=== PATIENT | female | born 1995 | race American Indian/Alaskan Native ===

== ENCOUNTER 2019-10-22 20:19 | Emergency (ER) | payer SELFPAY ==
--- NOTE | 2019-10-22 20:27 | Emergency Department Report ---
Blank Doc - Documentation Documentation: 24-year-old female that presents with right ankle pain s/p fall. This initial assessment/diagnostic orders/clinical plan/treatment(s) is/are subject to change based on patient's health status, clinical progression and re- assessment by fellow clinical providers in the ED. Further treatment and workup at subsequent clinical providers discretion. Patient/guardians urged not to elope from the ED as their condition may be serious if not clinically assessed and managed. Initial orders include: 1- Patient sent to [facility] for further evaluation and treatment 2- xrays
--- NOTE | 2019-10-22 21:07 | XRay Report ---
Right ankle-3 views INDICATION: ankle pain. COMPARISON: None. IMPRESSION: Moderate soft tissue swelling about the ankle, especially laterally. No acute fracture i dentified. Ankle mortise is symmetric and preserved. Signer Name: Timothy Sarabia MD Signed: 10/22/2019 9:02 PM Workstation Name: [id number]
[2019-10-23] MEDS ORDERED: HYDROcodone/ACETAMINOPHEN 5-325 MG TAB PO ONE (00:18)
[2019-10-23] MEDS ORDERED: IBUPROFEN 600 MG TAB PO ONE (00:18)
[2019-10-23] MEDS ORDERED: ONDANSETRON 4 MG ODT TAB PO ONE (00:19)
--- NOTE | 2019-10-23 01:07 | Emergency Department Report ---
ED Lower Extremity HPI - General Chief Complaint: Extremity Injury, Lower Stated Complaint: POSS RT FOOT BROKEN Time Seen by Provider: 10/22/19 20:26 Source: patient Mode of arrival: Ambulatory Limitations: No Limitations - History of Present Illness Initial Comments: Patient is a 24-year-old -Spanish female with no past medical history who presents to the ED with complaint of acute onset persistent severe right ankle pain and swelling after she tripped down the stairs and twisted her right ankle and fell down 24 hours ago. Patient admits that she was intoxicated on alcohol when this happened. Patient denies head and neck injuries, back pain, loss of consciousness, numbness and tingling or weakness of the right leg, dizziness, change in vision, seizures or syncope. Patient states that the pain is worse with ambulation. MD Complaint: ankle injury (right ankle pain and swelling) -: Sudden, hour(s) (24) Injury: Ankle: Right (swelling and pain) Type of Injury: inversion, eversion Place: home Severity: severe Severity scale (0 -10): 8 Improves With: nothing Worsens With: weight bearing, movement, palpation Context: fall, other (tripped down the stairs and twisted right ankle) Associated Symptoms: swelling (right ankle), able to partially bear weight. de nies: numbness, tingling - Related Data Previous Rx's Medication Instructions Recorded Last Taken Type Cyclobenzaprine [Flexeril] 10 mg PO Q8H PRN #15 tablet 10/23/19 Unknown Rx Ibuprofen [Motrin] 800 mg PO Q8HR PRN #24 tablet 10/23/19 Unknown Rx Allergies Allergy/AdvReac Type Severity Reaction Status Date / Time Cinnamon Allergy Hives Uncoded 10/22/19 20:25 ED Review of Systems ROS: Stated complaint: POSS RT FOOT BROKEN Other details as noted in HPI Constitutional: denies: chills, fever Eyes: denies: eye pain, eye discharge, vision change ENT: denies: ear pain, throat pain Respiratory: denies: cough, shortness of breath, wheezing Cardiovascular: denies: chest pain, palpitations Endocrine: no symptoms reported Gastrointestinal: denies: abdominal pain, nausea, diarrhea Genitourinary: denies: urgency, dysuria, discharge Musculoskeletal: joint swelling (right ankle), arthralgia (right ankle). denies: back pain Skin: denies: rash, lesions Neurological: denies: headache, weakness, paresthesias Psychiatric: denies: anxiety, depression Hematological/Lymphatic: denies: easy bleeding, easy bruising ED Past Medical Hx - Past Medical History Previous Medical History?: No - Surgical History Past Surgical History?: Yes Additional Surgical History: Tonsillectomy - Social History Smoking Status: Never Smoker Substance Use Type: None - Medications Home Medications: Home Medications Medication Instructions Recorded Confirmed Last Taken Type Cyclobenzaprine [Flexeril] 10 mg PO Q8H PRN #15 tablet 10/23/19 Unknown Rx Ibuprofen [Motrin] 800 mg PO Q8HR PRN #24 tablet 10/23/19 Unknown Rx ED Physical Exam - General Limitations: No Limitations General appearance: alert, in no apparent distress - Head Head exam: Present: atraumatic, normocephalic, normal inspection - Eye Eye exam: Present: normal appearance, PERRL, EOMI Pupils: Present: normal accommodation - ENT ENT exam: Present: normal exam, normal orophraynx, mucous membranes moist, TM's normal bilaterally, normal external ear exam - Neck Neck exam: Present: normal inspection, full ROM - Respiratory Respiratory exam: Present: normal lung sounds bilaterally. Absent: respiratory distress, wheezes, rales, rhonchi, chest wall tenderness, accessory muscle use, decreased breath sounds, prolonged expiratory - Cardiovascular Cardiovascular Exam: Present: normal rhythm, tachycardia, normal heart sounds. Absent: systolic murmur, diastolic murmur, rubs, gallop - GI/Abdominal GI/Abdominal exam: Present: soft, normal bowel sounds. Absent: tenderness, guarding, hyperactive bowel sounds, hypoactive bowel sounds, organomegaly - Extremities Exam Extremities exam: Present: normal inspection, full ROM, tenderness (right ankle tenderness), normal capillary refill, joint swelling (right ankle swelling and tenderness) - Back Exam Back exam: Present: normal inspection, full ROM. Absent: tenderness, muscle spasm, paraspinal tenderness - Neurological Exam Neurological exam: Present: alert, oriented X3, CN II-XII intact, normal gait, reflexes normal - Psychiatric Psychiatric exam: Present: normal affect, normal mood - Skin Skin exam: Present: warm, dry, intact, normal color. Absent: rash ED Course Vital Signs 10/22/19 10/22/19 10/23/19 20:22 20:31 00:41 Temperature 99.0 F 99 F Pulse Rate 102 H 103 H Respiratory 18 18 20 Rate Blood Pressure 142/96 142/96 O2 Sat by Pulse 98 98 Oximetry 10/23/19 00:42 Temperature Pulse Rate Respiratory 20 Rate Blood Pressure O2 Sat by Pulse Oximetry ED Lower Extremity MDM - Radiology Data Radiology results: report reviewed, image reviewed Right ankle x-ray shows no acute fractures or subluxations but soft tissue swelling. - Medical Decision Making This is a 24-year-old female who presented to the ED with complaint of acute onset rest ankle pain and swelling after she tripped on the stairs and twisted her right ankle and fell down while drunk 24 hours ago. In the ED, patient is alert and oriented 3 and is not in distress but appears to be in pain. Patient was treated for pain and right ankle x-ray shows no acute fractures or subluxations but soft tissue swelling. Patient's right ankle splint and Nick wrap and patient was discharged home on pain medications and muscle relaxants and also given crutches in the ED to aid in ambulation. Patient was advised to follow-up with her primary care physician in 5-7 days for reevaluation or return to the ED immediately if symptoms get worse. - Differential Diagnosis muscle strain; ankle sprain; ankle contusion Critical care attestation.: If time is entered above; I have spent that time in minutes in the direct care of this critically ill patient, excluding procedure time. ED Disposition Clinical Impression: Severe sprain of right ankle Qualifiers: Encounter type: initial encounter Qualified Code(s): S93.401A - Sprain of unspecified ligament of right ankle, initial encounter Muscle strain of right ankle Qualifiers: Encounter type: initial encounter Qualified Code(s): S96.911A - Strain of unspecified muscle and tendon at ankle and foot level, right foot, initial encounter Disposition: - TO HOME OR SELFCARE Is pt being admited?: No Does the pt Need Aspirin: No Condition: Stable Instructions: Ankle Sprain (ED), Muscle Strain (ED), Ankle Exercises (GEN) Additional Instructions: Take medications with food, drink plenty of fluids and follow-up with your primary care physician in 7-10 days for reevaluation. Return to the ED immediately if symptoms get worse. Prescriptions: Cyclobenzaprine [Flexeril] 10 mg PO Q8H PRN #15 tablet PRN Reason: Muscle Spasm Ibuprofen [Motrin] 800 mg PO Q8HR PRN #24 tablet PRN Reason: Pain , Severe (7-10) Referrals: CLAUDIO MCCARTHY MD [Primary Care Provider] - 3-5 Days Forms: Work/School Release Form(ED) Time of Disposition: 01:06 Print Language: FAROESE
[2019-10-23 01:34] VITALS: BP 153/97
== END 2019-10-23 01:50 | disposition home or self-care (01) ==
LOC: ED 20:19
DX: S96.911A Strain of unspecified muscle and tendon at ankle and foot level, right foot, initial encounter (principal); S93.401A Sprain of unspecified ligament of right ankle, initial encounter; Z90.89 Acquired absence of other organs; Z91.018 Allergy to other foods; W01.0XXA Fall on same level from slipping, tripping and stumbling without subsequent striking against object, initial encounter; Y93.89 Activity, other specified; Y92.89 Other specified places as the place of occurrence of the external cause; Y99.8 Other external cause status
CPT/HCPCS: Q0162